=== PATIENT | female | born 1935 | race Caucasian/White ===

== ENCOUNTER 2017-10-21 18:10 | Inpatient (IN) | payer MEDICARE, MEDICAID ==
[~2017-10-21] VITALS: Ht 160 cm; Wt 57.2 kg
--- NOTE | 2017-10-21 18:10 | NUR ---
BIBRA FROM HOME C/O SLURRED SPEECH, R SIDE FACIAL DROOPING, TT=289DH/DL IN THE FIELD, LKW=6HRS AGO. PLACED ON MONITOR. AWAITING MD ORDER
--- NOTE | 2017-10-21 18:17 | NUR ---
CODE STROKE ACTIVATED
--- NOTE | 2017-10-21 18:19 | NUR ---
CALLED TELESTROKE HOTLINE, SPOKE WITH CONRAD EXPECTING A CALL BACK FROM
[2017-10-21] MEDS ORDERED: IOHEXOL-350 100 ML VIAL IV ONE (18:22)
--- NOTE | 2017-10-21 18:23 | NUR ---
DR RODRÍGUEZ CALLED BACK ON THE PHONE WITH DR JOHN.
[2017-10-21] MEDS ORDERED: IV NS 0.9% 500 ML BAG IV ONE (18:30)
--- NOTE | 2017-10-21 18:30 | NUR ---
SEE CODE STROKE LOG
--- NOTE | 2017-10-21 18:40 | NUR ---
PT BACK FROM [place]
[2017-10-21 18:54] LABS: BASOPHILS % (AUTO) 0.5 % (0.0-2.0); EOSINOPHILS % (AUTO) 1.3 % (0.0-6.0); HEMATOCRIT 40 % (33-45); HEMOGLOBIN 13.6 g/dL (11.5-14.8); LYMPHOCYTES % (AUTO) 29.2 % (20.0-44.0); MEAN CORPUSCULAR HGB CONC 34 g/dl (31.0-36.0); MEAN CORPUSCULAR VOLUME 91 fL (82-100); MONOCYTES # (AUTO) 0.9 /CMM (0.1-1.30); NEUTROPHILS # (AUTO) 6.2 /CMM (1.8-8.9); PLATELET COUNT (AUTO) 254 /CMM (150-450); RDW COEFFICIENT OF VARIATION 12.8 (11.5-15.0); RED BLOOD CELL COUNT(AUTO) 4.41 MIL/uL (4.0-5.2); WHITE BLOOD COUNT (AUTO) 10.4 K/uL (4.3-11.0)
[2017-10-21 19:05] LABS: CALCIUM, SERUM 8.6 mg/dL (8.5-10.1); CARBON DIOXIDE 30 mmol/L (21-32); CHLORIDE 102 mmol/L (98-107); CREATININE 0.9 mg/dL (0.6-1.3); GLUCOSE 105 mg/dL (74-106); POTASSIUM 3.9 mmol/L (3.5-5.1); SODIUM SERUM 136 mmol/L (136-145); UREA NITROGEN, BLOOD 22 mg/dL (7-18)
[2017-10-21] MEDS ORDERED: ASPIRIN 300 MG/SUPP.RECT RC ONE ×2 (19:08→19:30)
[2017-10-21 19:11] LABS: ALANINE AMINOTRANSFERASE 17 U/L (12-78); ALBUMIN 3.4 g/dL (3.4-5.0); ALKALINE PHOSPHATASE 68 U/L (46-116); ASPARTATE AMINOTRANSFERASE 14 U/L (15-37); BILIRUBIN,DIRECT 0.1 mg/dL (0.0-0.2); BILIRUBIN,TOTAL 0.7 mg/dL (0.2-1.0); CHOLESTEROL 189 mg/dL (<200); HDL CHOLESTEROL 43 mg/dL (40-60); LDL 115 mg/dL (0-99); TOTAL PROTEIN, SERUM 7.2 g/dL (6.4-8.2); TRIGLYCERIDES 286 mg/dL (30-150)
[2017-10-21 19:12] LABS: INR 0.99 (0.85-1.15)
[2017-10-21 19:13] LABS: TROPONIN I 0.251 ng/mL (0.00-0.056)
--- NOTE | 2017-10-21 19:15 | NUR ---
GAVE REPORT TO JEMMA FOR EDWINA
--- NOTE | 2017-10-21 19:48 | NUR ---
SPOKE WITH CCRT REGARDING PT AND TRANSFER. AWAITING CALL BACK
--- NOTE | 2017-10-21 19:56 | NUR ---
CALLED TRES FROM [facility], HE SAID HE IS WAITING FOR A PHONE CALL FROM ONE OF HIS DR'S TO START TRANSPORT.
--- NOTE | 2017-10-21 20:03 | NUR ---
TRES FROM [facility] CALLED AND STATED BECAUSE THE PATIENT DOES NOT HAVE A LARGE VESSEL OCCLUSION AND THE PATIENT DID NOT RECIEVE TPA, THEY WILL NOT BE TRANSFERING THE PATIENT.
--- NOTE | 2017-10-21 20:07 | NUR ---
CALLED TELESTROKE HOTLINE DR RODRÍGUEZ WAS PAGED.
--- NOTE | 2017-10-21 20:14 | NUR ---
CALLED ON THE PHONE WITH DORA.
--- NOTE | 2017-10-21 20:42 | NUR ---
PT DID NOT COME WITH MEDICATION LIST. NO NUMBER FOR FACILITY OR CAREGIVER
[2017-10-21] MEDS ORDERED: ACETAMINOPHEN 325 MG TABLET PO PRN (21:00)
--- NOTE | 2017-10-21 21:02 | NUR ---
REPORT GIVEN TO EDWARD/RN TO ROOM 324-2
[2017-10-21] MEDS ORDERED: CARV12.52 PO (21:06)
[2017-10-21] MEDS ORDERED: AMLO10TA6 PO (21:06)
[2017-10-21] MEDS ORDERED: METO-357 PO (21:06)
[2017-10-21] MEDS ORDERED: TRAM50TA2 PO (21:06)
[2017-10-21] MEDS ORDERED: TEMA15CA PO (21:06)
--- NOTE | 2017-10-21 21:06 | NUR ---
SHAHID DUSTIN [phone]
[2017-10-21] MEDS ORDERED: ATOR10TA PO (21:38)
[2017-10-21] MEDS ORDERED: POTA10CA43 PO (21:38)
[2017-10-21] MEDS ORDERED: LEVO25TA7 PO (21:38)
[2017-10-21] MEDS ORDERED: DIPH1TAB PO (21:38)
[2017-10-21] MEDS ORDERED: MEMA10TA PO (21:38)
[2017-10-21] MEDS ORDERED: BISA-79 PO (21:38)
[2017-10-21] MEDS ORDERED: DIVA500T2 PO (21:38)
[2017-10-21] MEDS ORDERED: ESCI20TA PO (21:38)
[2017-10-21] MEDS ORDERED: CARV25TA2 PO (21:38)
[2017-10-21] MEDS: SIMVASTATIN 40 MG TABLET PO SCH (22:09)
[2017-10-21] MEDS: ENOXAPARIN SODIUM 40 MG/0.4 ML DISP.SYRIN SQ SCH (22:11)
[2017-10-21] MEDS: BLOOD SUGAR DIAGNOSTIC 1 EACH STRIP IN SCH (22:22)
[2017-10-21 23:31] LABS: THYROID STIMULATING HORMONE 4.539 uIU/mL (0.358-3.74)
[2017-10-22] VITALS (8 sets, daily range): BP systolic 95–140; BP diastolic 66–98
[2017-10-22] MEDS ORDERED: BLOOD SUGAR DIAGNOSTIC 1 EACH STRIP IN SCH
--- NOTE | 2017-10-22 04:18 | NUR ---
CLOSING NOTES: RECIEVED 21:45 LAST NIGHT. aLERT AND KNEW SHE WAS IN A HOSPITAL, DIDN'T KNOPW WHY. kNEW HER DATE.. SHE FOLLOWS SIMPLE DIRECTIONS. NOTED THE NIGHT PROGRESSED CFUSION SET IN, SHE WAS TRYING TO GET OOB, STATED GOING HOME. WAS ABLE TO CONVINCE HER TO GET IN BED. NEAR NURSING STATION FOR SAFETY, AND BED ALARM IN USE. SHE PULLED OUT HER SALINE LOCK LT AC. RIGHT SIDED FACIAL DROOP AND RIGHT ARE IS RIDGET BUT MOVEMENT PRESENT.
[2017-10-22 06:26] LABS: BASOPHILS # (AUTO) 0.1 /CMM (0.0-0.2); BASOPHILS % (AUTO) 0.6 % (0.0-2.0); EOSINOPHILS % (AUTO) 1.7 % (0.0-6.0); HEMATOCRIT 38 % (33-45); HEMOGLOBIN 12.8 g/dL (11.5-14.8); LYMPHOCYTES # (AUTO) 3.2 /CMM (0.8-4.8); LYMPHOCYTES % (AUTO) 38.6 % (20.0-44.0); MEAN CORPUSCULAR HGB CONC 34 g/dl (31.0-36.0); MEAN CORPUSCULAR VOLUME 91 fL (82-100); MONOCYTES # (AUTO) 0.7 /CMM (0.1-1.30); MONOCYTES % (AUTO) 8.2 % (2.0-12.0); NEUTROPHILS # (AUTO) 4.2 /CMM (1.8-8.9); NEUTROPHILS % (AUTO) 50.9 % (43.0-81.0); PLATELET COUNT (AUTO) 236 /CMM (150-450); RDW COEFFICIENT OF VARIATION 12.8 (11.5-15.0); RED BLOOD CELL COUNT(AUTO) 4.14 MIL/uL (4.0-5.2); WHITE BLOOD COUNT (AUTO) 8.3 K/uL (4.3-11.0)
--- NOTE | 2017-10-22 06:31 | NUR ---
MD DOSHI MADE AWARE HR 92 -132 UNCONTROLLED AFIB, NO NEW ORDERS
[2017-10-22 06:37] LABS: INR 0.99 (0.87-1.13)
[2017-10-22 06:50] LABS: CHOLESTEROL 183 mg/dL (<200); HDL CHOLESTEROL 43 mg/dL (40-60); LDL 122 mg/dL (0-99); TRIGLYCERIDES 124 mg/dL (30-150)
[2017-10-22 06:52] LABS: CARBON DIOXIDE 27 mmol/L (21-32); CHLORIDE 105 mmol/L (98-107); CREATININE 0.8 mg/dL (0.6-1.3); GLUCOSE 98 mg/dL (74-106); POTASSIUM 3.6 mmol/L (3.5-5.1); SODIUM SERUM 142 mmol/L (136-145); UREA NITROGEN, BLOOD 18 mg/dL (7-18)
[2017-10-22] MEDS: BLOOD SUGAR DIAGNOSTIC 1 EACH STRIP IN SCH ×4 (07:30→21:38)
--- NOTE | 2017-10-22 07:33 | NUR ---
RHEOLOGIST OPENING NOTE RECEIVED BEDSIDE REPORT ON THE PATIENT. PATIENT IS A/O X, CONFUSED, PRESENTS WITH EXPRESSIVE APHASIA. PATIENT IS IN BED, BED IS LOCKED IN LOWEST POSITION, SIDE RAILS UP X3, BED ALARM IS ON. PATIENT IS AMBULATORY WITH ASSIST. EXTERNAL MONITOR READING UNCONTROLLED AFIB 117. TEST ENG IS AWARE. HOSPITALIST IS AWARE. .CALL LIGHT WITHIN REACH. EDUCATED TO CALL FOR ASSISTANCE USING THE CALL LIGHT NO S/S OF PAIN/DISCOMFORT AT THIS TIME. ALL NEEDS ARE MET. CHEST RISING EQUALLY/BILATERALLY. SPO2 95% ON ROOM AIR. WILL CONTINUE TO ASSESS/MONITOR THROUGHOUT THE SHIFT.
--- NOTE | 2017-10-22 08:40 | NUR ---
BLOOD GLUCOSE DIAGNOSTIC WAS DONE BY SEWAGE DISPOSAL WORKER RN AT 0540, BUT NOT SCANNED. DOCUMENTED NON-ADMINISTERED TO RID OF RED REMINDER I THE EMAR.
[2017-10-22] MEDS ORDERED: IV NS 0.9% 1,000 ML IV SCH (09:30)
[2017-10-22] MEDS: ASPIRIN EC 325 MG TABLET.DR PO SCH (10:25)
[2017-10-22] MEDS: DOCUSATE SODIUM 100 MG CAPSULE PO SCH (10:25)
[2017-10-22] MEDS ORDERED: TRAMADOL HCL 50 MG TABLET PO PRN (10:30)
[2017-10-22] MEDS ORDERED: BISACODYL (5 MG) 5 MG TABLET.DR PO ONE (10:30)
--- NOTE | 2017-10-22 10:36 | NUR ---
Received verbal order from Dr Bañuelos to reduce IV rate to 75 Ml/hr. Read back and verified. Will follow order as received.
[2017-10-22] MEDS ORDERED: POTASSIUM CHLORIDE 10 MEQ TABLET.SA PO SCH (11:30)
--- NOTE | 2017-10-22 12:10 | NUR ---
came to check BG. Patient's family at the bedside stated patient gets upset from being pocked. Asked me to come back later.
[2017-10-22] MEDS: DIGOXIN INJ 0.5 MG/2 ML AMPUL IV SCH ×3 (12:50→23:57)
--- NOTE | 2017-10-22 12:57 | NUR ---
Bg 145mg/dL postprandial. Caregiver/family refused coverage.
[2017-10-22] MEDS ORDERED: DIVALPROEX SODIUM 500 MG TABLET.DR PO SCH (13:00)
[2017-10-22] MEDS: VALPROIC ACID 250 MG/5 ML UDC PO SCH ×2 (13:00→17:31)
--- NOTE | 2017-10-22 13:28 | NUR ---
Social service consult requested by DR. Sandoval for CVA. Pt. is a 82 year old female who was admitted to [facility] for possible stroke. YONI and case technician Marcela Yuen met with pt. bedside. Pt. is alert and oriented x 1 and appears confused. Pt's family/caregiver Alpa Contrerasedwige was bedside. Per Alpa, pt. is able to ambulate. Pt. to be assessed by Physical therapy for ambulation. Pt. resides at [address] [place] [address]. [place] [id number]. According to Alpa, pt. does not have a history of stroke. Pt. has Home Health services through [facility] . Pt. is also receiving 60 hrs per month in [facility]. SW encouraged pt's caregiver Alpa to notify pt's family caseworker at [facility] regarding pt. having an stroke and will most likely need more caregiving hours. No other social service needs are required at this time. SW is available, if needed.
--- NOTE | 2017-10-22 13:43 | NUR ---
REFUSED TO TAKE POTASSIUM BECAUSE PILL IS TO BIG. REFUSED TO TAKE DIVALPROEX BECAUSE THE PILL IS TOO BIG. PHARMACY INFORMED. AWAITING T PHARMACY TO SWITCH TO LIQUID AND POCKET.
[2017-10-22] MEDS: POTASSIUM CHLORIDE 20 MEQ POWDER PACKET PO SCH (14:45)
--- NOTE | 2017-10-22 15:52 | NUR ---
DR LAGOS NOTIFIED OF PATIENT'S FALL INCIDENT. Addendum: 10/22/17 at 1714 by BRIJESH DEL CID RN TIME IS 7069
--- NOTE | 2017-10-22 16:50 | NUR ---
FALL INCIDENT NOTE PATIENT'S ROOMMATES CAME TO RN AND SAID THAT THE PATIENT IS SITTING ON THE FLOOR. WHEN RN WENT TO THE ROOM THE PATIENT WAS SITTING AT THE FLOOR NEXT TO THE BED. RN ASKED THE PATIENT IF SHE HAS FALLEN. PATIENT WAS UNABLE TO ANSWER D/T EXPRESSIVE APHASIA. RN ASKED THE PATIENT IF THE PATIENT IS EXPERIENCING PAIN. PATIENT SHOOK HER HEAD INDICATING NEGATIVE ANSWER. RN HAS LEFT THE BEDSIDE ALARM ON. PATIENT HAS RECENTLY AMBULATED WITH PT/OT. BED ALARM DID NOT GO OFF WHEN PATIENT WENT OUT OF THE BED. BED ALARM WAS OFF. PATIENT WAS EXAMINED. NO BRUISES, REDNESS, SCRATCHES PRESENT. PATIENT ASSISTED BACK TO THE BED. SIDE RAILS UP X3, BED ALARM IS ON, CALL LIGHT WITHIN REACH. FAMILY MEMBER AT THE BEDSIDE. CHARGE NURSE NOTIFIED.
--- NOTE | 2017-10-22 17:41 | NUR ---
BG 137mg/dl/ family at the bedside. Patient had a juice nad is in the process of having her dinner. Family refused coverage.
--- NOTE | 2017-10-22 19:00 | NUR ---
RECREATION ATTENDANT NOTES RECEIVE PT IN BED A/O X 2 CONFUSED, NO S/S OF DISTRESS, SAFETY MEASURES IN PLACE, CALL LIGHT WITHIN REACH, WILL CONTINUE TO MONITOR
--- NOTE | 2017-10-22 19:17 | NUR ---
SASH FINISHER CLOSING NOTE PATIENT IS A/O X1, CONFUSED, PRESENTS WITH EXPRESSIVE APHASIA. PATIENT IS IN BED, BED IS LOCKED IN LOWEST POSITION, SIDE RAILS UP X3, BED ALARM IS ON. PATIENT IS AMBULATORY WITH ASSIST. EXTERNAL MONITOR READING UNCONTROLLED AFIB 119. PROFILE MILL OPERATOR TAPE CONTROL IS AWARE. HOSPITALIST IS AWARE. CALL LIGHT WITHIN REACH. EDUCATED TO CALL FOR ASSISTANCE USING THE CALL LIGHT NO S/S OF PAIN/DISCOMFORT AT THIS TIME. ALL NEEDS ARE MET. CHEST RISING EQUALLY/BILATERALLY. SPO2 95% ON ROOM AIR. WILL ENDORSE TO THE DIETETIC INTERN NURSE FOR EDWINA.
[2017-10-22] MEDS: SIMVASTATIN 40 MG TABLET PO SCH (21:26)
[2017-10-22] MEDS: ENOXAPARIN SODIUM 40 MG/0.4 ML DISP.SYRIN SQ SCH (21:37)
[2017-10-23] VITALS: BP 134/82
[2017-10-23 04:00] VITALS: BP 146/98
[2017-10-23] MEDS: BLOOD SUGAR DIAGNOSTIC 1 EACH STRIP IN SCH ×4 (06:13→21:06)
--- NOTE | 2017-10-23 06:37 | NUR ---
MS RN NOTES ASLEEP AND EASILY AWAKEN, HOB ELEVATED, STABLE NO S/S OF ACUTE DISTRESS OR SOB NOTED. TOLERATING ROOM AIR 99% RESPIRATIONS EVEN AND UNLABORED. NEEDS ATTENDED AND ANTICIPATED; AFEBRILE, KEPT CLEAN AND DRY AND COMFORTABLE. NURSING CARE RENDERED, ASSISTED REPOSITION EVERY 2 HOURS, OFFLOADED HEELS AND ELBOWS AT ALL TIMES. SAFETY MEASURES IN PLACE. BED LOW LOCKED SIDE RAILS UP, CALL LIGHT AND BEDSIDE TABLE WITHIN REACH. ENDORSE TO THE NEXT SHIFT POC.
--- NOTE | 2017-10-23 06:38 | NUR ---
ATTACH TO TELE WITH READING OF CONTROLLED AFIB 98'S Addendum: 10/23/17 at 0639 by KENNETH COMBS RN [facility]
--- NOTE | 2017-10-23 07:25 | NUR ---
PRESALES CONSULTANT OPENING NOTE RECEIVED BEDSIDE REPORT ON THE PATIENT. PATIENT IS A/O X2, CONFUSED, PRESENTS WITH EXPRESSIVE APHASIA. PATIENT IS ASLEEP, EASILY AWAKEN IN BED, BED IS LOCKED IN LOWEST POSITION, SIDE RAILS UP X3, BED ALARM IS ON. PATIENT IS AMBULATORY WITH ASSIST. EXTERNAL MONITOR READING AFIB 88BPM. MARKETING COMMUNICATIONS MANAGER IS AWARE. HOSPITALIST IS AWARE. CALL LIGHT WITHIN REACH. EDUCATED TO CALL FOR ASSISTANCE USING THE CALL LIGHT NO S/S OF PAIN/DISCOMFORT AT THIS TIME. ALL NEEDS ARE MET. CHEST RISING EQUALLY/BILATERALLY. SPO2 96% ON ROOM AIR. WILL CONTINUE TO ASSESS/MONITOR THROUGHOUT THE SHIFT.
[2017-10-23 08:00] VITALS: BP 134/103
[2017-10-23] MEDS: VALPROIC ACID 250 MG/5 ML UDC PO SCH ×3 (09:08→17:22)
[2017-10-23] MEDS: ESCITALOPRAM OXALATE (10 MG) 10 MG TABLET PO SCH (09:09)
[2017-10-23] MEDS: POTASSIUM CHLORIDE 20 MEQ POWDER PACKET PO SCH (09:09)
[2017-10-23] MEDS: DOCUSATE SODIUM 100 MG CAPSULE PO SCH (09:09)
[2017-10-23] MEDS: ASPIRIN EC 325 MG TABLET.DR PO SCH (09:09)
[2017-10-23] MEDS: MEMANTINE HCL 5 MG TABLET PO SCH (09:09)
[2017-10-23] MEDS: LEVOTHYROXINE SODIUM 25 MCG TABLET PO SCH (09:09)
[2017-10-23] MEDS: DIGOXIN 0.25 MG TABLET PO SCH (12:22)
[2017-10-23 16:00] VITALS: BP 131/73
[2017-10-23 16:03] VITALS: BP 123/89
--- NOTE | 2017-10-23 18:27 | NUR ---
MS RN CLOSING NOTE PATIENT PRESENTS WITH EXPRESSIVE APHASIA. PATIENT IS ALERT AND AWAKE IN IN BED, BED IS LOCKED IN LOWEST POSITION, SIDE RAILS UP X3, BED ALARM IS ON. PATIENT IS AMBULATORY WITH ASSIST. CALL LIGHT WITHIN REACH. EDUCATED TO CALL FOR ASSISTANCE USING THE CALL LIGHT NO S/S OF PAIN/DISCOMFORT AT THIS TIME. ALL NEEDS ARE MET. CHEST RISING EQUALLY/BILATERALLY. SPO2 97% ON ROOM AIR. WILL ENDORSE TO THE BUSINESS CENTER ATTENDANT NURSE FOR EDWINA.
--- NOTE | 2017-10-23 19:15 | NUR ---
RN NOTES RECEIVED PATIENT IN BED, AWAKE, NOTED WITH EXPRESSIVE APHASIA, ABLE TO RESPOND WITH QUESTIONS ANSWERABLE BY YES OR NO. NO SOB NOTED, BREATHING EVEN AND UNLABORED, RE-ORIENTED PATIENT ON USING THE CALL LIGHT. PLACED CALL LIGHT WITHIN EASY REACH. NOTED WITH NO FACIAL GRIMACING, WITH NO SIGNS OF DISTRESS. PLACED BED IN LOW POSITION AND LOCKED IN PLACE. WILL CONTINUE TO MONITOR PT.
[2017-10-23 20:00] VITALS: BP 120/85
[2017-10-23] MEDS: SIMVASTATIN 40 MG TABLET PO SCH (21:00)
[2017-10-23] MEDS: ENOXAPARIN SODIUM 40 MG/0.4 ML DISP.SYRIN SQ SCH (21:00)
[2017-10-24] VITALS: BP 147/85
--- NOTE | 2017-10-24 06:32 | NUR ---
RN CLOSING NOTES PATIENT IN BED, ASLEEP BUT EASILY AROUSABLE, NOTED WITH NO SOB, BREATHING EVEN AND UNLABORED, IN STABLE CONDITION THROUGHOUT THE SHIFT, WITH NO CHANGES IN MENTATION NOTED. ALL PATIENT'S NEEDS ATTENDED TO, KEPT PT SAFE AND DRY, CLEAN AND COMFORTABLE. BED ALARM ON, IN LOW POSITION AND LOCKED IN PLACE. PLACED CALL LIGHT WITHIN EASY REACH. WILL ENDORSE TO AM SHIFT NURSE FOR CONTINUITY OF CARE.
[2017-10-24] MEDS: BLOOD SUGAR DIAGNOSTIC 1 EACH STRIP IN SCH ×2 (06:37→12:22)
[2017-10-24 06:59] LABS: BASOPHILS # (AUTO) 0.1 /CMM (0.0-0.2); BASOPHILS % (AUTO) 0.6 % (0.0-2.0); EOSINOPHILS % (AUTO) 2.3 % (0.0-6.0); HEMATOCRIT 42 % (33-45); HEMOGLOBIN 14.2 g/dL (11.5-14.8); LYMPHOCYTES # (AUTO) 2.8 /CMM (0.8-4.8); LYMPHOCYTES % (AUTO) 35.1 % (20.0-44.0); MEAN CORPUSCULAR HGB CONC 34 g/dl (31.0-36.0); MEAN CORPUSCULAR VOLUME 92 fL (82-100); MONOCYTES # (AUTO) 0.6 /CMM (0.1-1.30); NEUTROPHILS # (AUTO) 4.3 /CMM (1.8-8.9); PLATELET COUNT (AUTO) 242 /CMM (150-450); RDW COEFFICIENT OF VARIATION 12.4 (11.5-15.0); RED BLOOD CELL COUNT(AUTO) 4.58 MIL/uL (4.0-5.2); WHITE BLOOD COUNT (AUTO) 7.9 K/uL (4.3-11.0)
[2017-10-24 07:13] LABS: TROPONIN I 0.351 ng/mL (0.00-0.056)
[2017-10-24 07:15] LABS: ALANINE AMINOTRANSFERASE 17 U/L (12-78); ALBUMIN 3.3 g/dL (3.4-5.0); ALKALINE PHOSPHATASE 71 U/L (46-116); ASPARTATE AMINOTRANSFERASE 13 U/L (15-37); BILIRUBIN,TOTAL 1.4 mg/dL (0.2-1.0); CARBON DIOXIDE 27 mmol/L (21-32); CHLORIDE 104 mmol/L (98-107); CREATININE 0.8 mg/dL (0.6-1.3); GLUCOSE 92 mg/dL (74-106); MAGNESIUM 2.7 mg/dL (1.8-2.4); PHOSPHORUS 3.3 mg/dL (2.5-4.9); POTASSIUM 3.9 mmol/L (3.5-5.1); SODIUM SERUM 140 mmol/L (136-145); TOTAL PROTEIN, SERUM 7.1 g/dL (6.4-8.2); UREA NITROGEN, BLOOD 20 mg/dL (7-18)
--- NOTE | 2017-10-24 07:15 | NUR ---
MS RN NOTES RECEIVED PATIENT IN BED EYES CLOSED, AROUSABLE. NO ACUTE DISTRESS NOTED. BREATHING UNLABORED.SAFETY MEASURES IN PLACE. BED IN LOW POSITION. HOB ELEVATED. CALL LIGHT WITHIN REACH. WILL CONTINUE TO MONITOR ACCORDINGLY.
[2017-10-24 08:44] VITALS: BP 150/97
[2017-10-24] MEDS: ESCITALOPRAM OXALATE (10 MG) 10 MG TABLET PO SCH (09:17)
[2017-10-24] MEDS: ASPIRIN EC 325 MG TABLET.DR PO SCH (09:17)
[2017-10-24] MEDS: MEMANTINE HCL 5 MG TABLET PO SCH (09:17)
[2017-10-24] MEDS: LEVOTHYROXINE SODIUM 25 MCG TABLET PO SCH (09:17)
[2017-10-24] MEDS: DOCUSATE SODIUM 100 MG CAPSULE PO SCH (09:17)
[2017-10-24] MEDS: VALPROIC ACID 250 MG/5 ML UDC PO SCH ×3 (09:18→16:34)
[2017-10-24] MEDS: DIGOXIN 0.25 MG TABLET PO SCH (12:22)
[2017-10-24] MEDS ORDERED: Digoxin PO (14:26)
[2017-10-24] MEDS ORDERED: ASPI-869 PO (14:26)
[2017-10-24] MEDS ORDERED: SIMV40TA5 PO (14:26)
[2017-10-24 15:50] VITALS: BP 155/91
--- NOTE | 2017-10-24 16:45 | NUR ---
MS WET END SUPERVISOR NOTES PATIENT DISCHARGED HOME WITH HOME HEALTH IN STABLE CONDITION. NO ACUTE DISTRESS NOTED. BREATHING UNLABORED. DISCHARGE INSTRUCTIONS GIVEN TO THE ABHIJIT LARSON INCLUDING FOLLOW UP APPOINTMENT, VERBALIZED UNDERSTANDING. ALL BELONGINGS ACCOUNTED FOR. SKIN IS INTACT. IV ACCESS REMOVED, NO BLEEDING OR SWELLING NOTED. WHEELED TO THE LOBBY, ASSISTED TO A PRIVATE CAR .
== END 2017-10-24 16:44 | disposition home health service (06) | DRG 64 ==
LOC: ER 18:13 → TELE 21:21 → MED 10-23 09:49
DX: I63.412 Cerebral infarction due to embolism of left middle cerebral artery (principal); I21.A1 Myocardial infarction type 2; I48.91 Unspecified atrial fibrillation; F03.90 Unspecified dementia, unspecified severity, without behavioral disturbance, psychotic disturbance, mood disturbance, and anxiety; I10 Essential (primary) hypertension; R47.01 Aphasia; Z98.82 Breast implant status
CPT/HCPCS: 36415; 70450-TC; 70496-TC; 70498-TC; 71045-TC; 80048-TC; 80053-TC; 80061-TC; 80076-TC; 82962-TC; 83735-TC; 83880; 84100-TC; 84443-TC; 84484-TC; 85025-TC; 85652-TC; 85730-TC; 86850-TC; 87081-TC; 92521; 92611-TC; 93307-TC; 93880-TC; 97110-TC; 97112-TC; A4606; J1160; J1650; J7040; Q9967; Z7610

== ENCOUNTER 2017-10-26 13:23 | Outpatient (CLI) | payer MEDICARE, MEDICAID ==
[2017-10-26 13:15] VITALS: BP 121/62
[~2017-10-26 13:23] MED LIST: AMLO10TA6 PO; ASPI-869 PO; BISA-79 PO; CARV25TA2 PO; DIPH1TAB PO; DIVA500T2 PO; Digoxin PO; ESCI20TA PO; LEVO25TA7 PO; MEMA10TA PO; METO-357 PO; POTA10CA43 PO; SIMV40TA5 PO; TEMA15CA PO; TRAM50TA2 PO
== END 2017-10-26 23:59 | disposition home or self-care (01) ==
LOC: MSC 13:23
PROVIDERS: ATTEND Internal Medicine
DX: I69.320 Aphasia following cerebral infarction (principal); I48.91 Unspecified atrial fibrillation; I10 Essential (primary) hypertension; F03.90 Unspecified dementia, unspecified severity, without behavioral disturbance, psychotic disturbance, mood disturbance, and anxiety

== ENCOUNTER 2017-11-16 13:02 | Outpatient (CLI) | payer MEDICARE, MEDICAID ==
[2017-11-16 13:18] VITALS: BP 91/59
== END 2017-11-16 23:59 | disposition home or self-care (01) ==
LOC: MSC 13:02
PROVIDERS: ATTEND Internal Medicine
DX: I69.320 Aphasia following cerebral infarction (principal); Z79.82 Long term (current) use of aspirin; I48.91 Unspecified atrial fibrillation; Z79.01 Long term (current) use of anticoagulants; I10 Essential (primary) hypertension; F03.90 Unspecified dementia, unspecified severity, without behavioral disturbance, psychotic disturbance, mood disturbance, and anxiety

== ENCOUNTER 2017-12-09 15:16 | Inpatient (IN) | payer MEDICARE, MEDICAID ==
[2017-12-09] VITALS: BP 113/70
[~2017-12-09] VITALS: Ht 152.4 cm; Wt 56.2 kg
[~2017-12-09 15:16] MED LIST changes: +AMLO10TA2 PO; -AMLO10TA6 PO
[2017-12-09] MEDS ORDERED: DIGO125T PO (15:30)
[2017-12-09] MEDS ORDERED: RIVA10TA PO (15:30)
--- NOTE | 2017-12-09 15:30 | NUR ---
PT BIB RA S/P SZ WITNESSED BY FAMILY. NO LOSS OF CONTINENCE. NO VISIBLE TRAUMA, OR ORAL TRAUMA. RESP EVEN UNLABORED. SKIN WARM DRY. PT IS ALERT AND ORIENTED BUT ACTING ODDLY, REQUIRING REPEATED INSTRUCTIONS TO FOLLOW COMMANDS. IN ER BED 09 ON MONITOR.
[2017-12-09] MEDS ORDERED: POTA10TA15 PO (15:50)
[2017-12-09] MEDS ORDERED: ATOR10TA PO (15:50)
[2017-12-09] MEDS ORDERED: OLAN10TA3 PO (15:50)
[2017-12-09 15:59] LABS: BASOPHILS # (AUTO) 0.1 /CMM (0.0-0.2); BASOPHILS % (AUTO) 0.7 % (0.0-2.0); EOSINOPHILS % (AUTO) 1.3 % (0.0-6.0); HEMATOCRIT 44 % (33-45); HEMOGLOBIN 14.9 g/dL (11.5-14.8); LYMPHOCYTES # (AUTO) 2.4 /CMM (0.8-4.8); LYMPHOCYTES % (AUTO) 31.1 % (20.0-44.0); MEAN CORPUSCULAR HEMOGLOBIN 32 PG (26.0-33.0); MEAN CORPUSCULAR HGB CONC 34 g/dl (31.0-36.0); MEAN CORPUSCULAR VOLUME 93 fL (82-100); MONOCYTES # (AUTO) 0.6 /CMM (0.1-1.30); MONOCYTES % (AUTO) 7.3 % (2.0-12.0); NEUTROPHILS # (AUTO) 4.6 /CMM (1.8-8.9); NEUTROPHILS % (AUTO) 59.6 % (43.0-81.0); PLATELET COUNT (AUTO) 242 /CMM (150-450); RED BLOOD CELL COUNT(AUTO) 4.72 MIL/uL (4.0-5.2); WHITE BLOOD COUNT (AUTO) 7.8 K/uL (4.3-11.0)
[2017-12-09 16:11] LABS: CALCIUM, SERUM 9.8 mg/dL (8.5-10.1); CARBON DIOXIDE 31 mmol/L (21-32); CHLORIDE 104 mmol/L (98-107); CREATININE 0.9 mg/dL (0.6-1.3); GLUCOSE 115 mg/dL (74-106); POTASSIUM 4.3 mmol/L (3.5-5.1); SODIUM SERUM 141 mmol/L (136-145); UREA NITROGEN, BLOOD 25 mg/dL (7-18)
[2017-12-09 16:15] LABS: INR 1.22 (0.85-1.15)
[2017-12-09 16:20] LABS: ALANINE AMINOTRANSFERASE 37 U/L (12-78); ALBUMIN 3.5 g/dL (3.4-5.0); ALCOHOL, BLOOD < 3 mg/dL (0-0); ALKALINE PHOSPHATASE 68 U/L (46-116); ASPARTATE AMINOTRANSFERASE 21 U/L (15-37); BILIRUBIN,DIRECT 0.1 mg/dL (0.0-0.2); BILIRUBIN,TOTAL 0.6 mg/dL (0.2-1.0); TOTAL PROTEIN, SERUM 7.3 g/dL (6.4-8.2)
[2017-12-09] MEDS ORDERED: ASPIRIN 81 MG TAB.CHEW ONE (16:28)
[2017-12-09] MEDS ORDERED: DIVALPROEX SODIUM 250 MG TABLET.DR PO ONE ×2 (16:28→16:30)
--- NOTE | 2017-12-09 16:32 | NUR ---
ASPIRIN 162MG PO ADMINISTERED PER VERBAL ORDER OF DR ERWIN FOR ELEVATED TROPONIN
--- NOTE | 2017-12-09 16:39 | NUR ---
Tele [phone] LATA Liriano
--- NOTE | 2017-12-09 16:44 | NUR ---
Report given to LATA Liriano for EDWINA Tele [phone]
--- NOTE | 2017-12-09 16:45 | NUR ---
Received telephone report from LATA Pendleton for ER. Awaiting for the patient's arrival.
--- NOTE | 2017-12-09 17:15 | NUR ---
PT TRANSPORTED TO [facility] IN STABLE CONDITION VIA ACLS PROTOCOL
--- NOTE | 2017-12-09 17:29 | NUR ---
patient arrived to the unit Admitting notified.
[2017-12-09 17:30] VITALS: BP 115/72
[2017-12-09] MEDS ORDERED: MAG HYDROX/AL HYDROX/SIMETH 30 ML UDC PO PRN (17:30)
[2017-12-09] MEDS ORDERED: MAGNESIUM HYDROXIDE 30 ML UDC PO PRN (17:30)
[2017-12-09] MEDS ORDERED: ONDANSETRON HCL/PF 4 MG/2 ML VIAL IVP PRN (17:30)
[2017-12-09] MEDS ORDERED: ACETAMINOPHEN 325 MG TABLET PO PRN (17:30)
[2017-12-09] MEDS ORDERED: ENOXAPARIN SODIUM 40 MG/0.4 ML DISP.SYRIN SQ SCH (17:30)
[2017-12-09] MEDS ORDERED: HYDROCODONE/APAP 5/325MG 1 EACH TABLET PO PRN (17:30)
[2017-12-09] MEDS ORDERED: ZOLPIDEM TARTRATE 5 MG TABLET PO PRN (17:30)
[2017-12-09] MEDS ORDERED: Z GUARD REMEDY 2 OZ OINT TP PRN (17:30)
--- NOTE | 2017-12-09 17:30 | NUR ---
PATIENT IS CONFUSED, AWAKE AND RESPONSIVE, PRESENTS WITH GARBLED SPEECH. PATIENT IS BED, BED IS LOCKED IN LOWEST POSITION, SIDE RAILS UP X3, BED ALARM IS ON. CALL LIGHT WITHIN REACH. EDUCATED TO USE THE CALL LIGHT TO CALL FOR ASSISTANCE. SKIN ASSESSMENT REVEALED RIGHT GLUTEAL PUSS FILLED ABSCESS. DENIES PAIN/DISCOMFORT AT THIS TIME. SPO2 96% ON RA. VS WNL. FAMILY AT THE BEDSIDE. CARE PLAN DISCUSSED. EXTERNAL TOOLER READING AFIB UNCONTROLLED WITH HR 122BMP. PAMELLA MORENO NOTIFIED. NO ORDERS RECEIVED. WILL CONTINUE TO ASESS/MONITOR THROUGHOUT THE SHIFT.
[2017-12-09] MEDS ORDERED: DIPHENOXYLATE HCL/ATROP SULF 1 UDTAB TABLET PO PRN (18:00)
[2017-12-09] MEDS ORDERED: OLANZAPINE 10 MG TABLET PO SCH (18:00)
[2017-12-09] MEDS ORDERED: BISACODYL (5 MG) 5 MG TABLET.DR PO PRN (18:00)
--- NOTE | 2017-12-09 19:00 | NUR ---
RN OPENING NOTES PT AWAKE AND RESTING IN BED. DAUGHTER AT BEDSIDE. PT CONFUSED AND SPEECH GABBLED. PT TELE MONITORED UNCONTROLLED AFIB. PT HAS A LEFT AC #20 INTACT AND PATENT. SAFETY PRECAUTIONS IN PLACE, BED IN LOWEST LOCKED POSITION, X3 SIDE RAILS UP CALL LIGHT WITHIN REACH WILL CONTINUE TO MONITOR.
--- NOTE | 2017-12-09 19:42 | NUR ---
MACHINE OPERATOR PICKER CLOSING NOTE GAVE BEDSIDE SBAR REPORT ON THE PATIENT. PATIENT IS BED, BED IS LOCKED IN LOWEST POSITION, SIDE RAILS UP X3, BED ALARM IS ON. CALL LIGHT WITHIN REACH. EDUCATED TO USE THE CALL LIGHT TO CALL FOR ASSISTANCE. SKIN ASSESSMENT REVEALED RIGHT GLUTEAL PUSS FILLED ABSCESS. DENIES PAIN/DISCOMFORT AT THIS TIME. SPO2 96% ON RA. VS WNL. FAMILY AT THE BEDSIDE. CARE PLAN DISCUSSED. EXTERNAL BOILER HOUSE OPERATOR READING AFIB UNCONTROLLED WITH HR 112 BMP. SOME MEDICATIONS DUE AT 1800 WERE UNVERIFIED BY THE PHARMACY. PATTERN FILER NURSE WILL ADMINISTER. ENDORSED. ENDORSED TO THE PATTERN FILER NURSE FOR EDWINA
[2017-12-09 20:00] VITALS: BP 115/76
[2017-12-09] MEDS: LEVETIRACETAM (500MG) 1,000 MG in IV NS 0.9% 100 ML IV SCH (20:00)
[2017-12-09] MEDS: OLANZAPINE 5 MG TABLET PO SCH (20:00)
[2017-12-09] MEDS: ATORVASTATIN 10 MG TABLET PO SCH (21:56)
--- NOTE | 2017-12-09 22:15 | NUR ---
RN NOTES INFORMED DR DE LA GARZA THAT TROPONIN INCREASED FROM 0.552 TO 0.578.
--- NOTE | 2017-12-09 22:20 | NUR ---
RN NOTES CALLED DR DE LA GARZA. PT TELE MONITORED AT UNCONTROLLED AFIB RATE BETWEEN 120-130. HIGHEST RATE 138. MD ORDERED METOPROLOL 26MG PO ONCE AND FOR THE PT TO BE TRANSFERRED TO [facility]. WILL ADMINISTER METOPROL AND TRANSFER PT.
[2017-12-09] MEDS ORDERED: LORAZEPAM INJ 2 MG/ML VIAL IV PRN (22:30)
[2017-12-09] MEDS ORDERED: METOPROLOL SUCCINATE 25 MG TAB.SR.24H PO STA (22:35)
--- NOTE | 2017-12-09 22:45 | NUR ---
RN NOTES PT TRANSFERRED TO ROOM 103 [facility]. PT VITAL SIGN STABLE WITH THE EXCEPTION OF UNCONTROLLED AFIB. ALL PT BELONGINGS TRANSFERRED WITH PT. FAMILY MEMBER NOTIFIED OF TRANSFER.
--- NOTE | 2017-12-09 22:45 | NUR ---
FADY RN NOTES . PTS AND REPORT WAS RECEIVED FROM 3 WEST RN ALEXA ,PTS IS AWAKE ALERT WITH CONFUSION , D/T AFIB WITH RVR , HR OF 117, FADY STATUS , ON TELE MONITOR AFIB 110 ,CARDIZEM 5MG GIVEN IVP ORDERED AND NS 250CC XI GIVEN ORDERED, V/S STABLE AFEBRILE , PADDED SIDE RAILS FOR SEIZURE D/O. ALL NEEDS ATTENDED TOO CALL LIGHT WITHIN REACH , KEPT PTS CLEAN DRY AND COMFORTABLE,NO SOB NO DISTRESS NOTED .WILL CONTINUE TO MONITOR PTS.
[2017-12-09] MEDS ORDERED: IV NS 0.9% 250 ML IV ONE (23:00)
[2017-12-09] MEDS ORDERED: DILTIAZEM HCL 25 MG IV IV ONE (23:00)
[2017-12-09] MEDS ORDERED: METOPROLOL TARTRATE INJ 5 MG/5 ML AMPUL IVP PRN (23:00)
[2017-12-09 23:44] VITALS: BP 128/71
[2017-12-10] VITALS: BP 113/70
--- NOTE | 2017-12-10 01:22 | NUR ---
FADY RN NOTES PTS REMAINS NPO AT THIS TIME.
[2017-12-10 04:00] VITALS: BP 117/75
[2017-12-10 04:28] LABS: BASOPHILS % (AUTO) 0.4 % (0.0-2.0); EOSINOPHILS % (AUTO) 1.4 % (0.0-6.0); HEMATOCRIT 39 % (33-45); HEMOGLOBIN 13.4 g/dL (11.5-14.8); LYMPHOCYTES # (AUTO) 3.7 /CMM (0.8-4.8); LYMPHOCYTES % (AUTO) 44.2 % (20.0-44.0); MEAN CORPUSCULAR HEMOGLOBIN 32 PG (26.0-33.0); MEAN CORPUSCULAR HGB CONC 34 g/dl (31.0-36.0); MEAN CORPUSCULAR VOLUME 94 fL (82-100); MONOCYTES # (AUTO) 0.5 /CMM (0.1-1.30); MONOCYTES % (AUTO) 6.3 % (2.0-12.0); NEUTROPHILS % (AUTO) 47.7 % (43.0-81.0); PLATELET COUNT (AUTO) 195 /CMM (150-450); RDW COEFFICIENT OF VARIATION 12.9 (11.5-15.0); RED BLOOD CELL COUNT(AUTO) 4.17 MIL/uL (4.0-5.2); WHITE BLOOD COUNT (AUTO) 8.4 K/uL (4.3-11.0)
[2017-12-10 04:54] LABS: CALCIUM, SERUM 9.1 mg/dL (8.5-10.1); CARBON DIOXIDE 28 mmol/L (21-32); CHLORIDE 109 mmol/L (98-107); CREATININE 0.8 mg/dL (0.6-1.3); GLUCOSE 114 mg/dL (74-106); POTASSIUM 3.9 mmol/L (3.5-5.1); SODIUM SERUM 144 mmol/L (136-145); UREA NITROGEN, BLOOD 21 mg/dL (7-18)
[2017-12-10 04:57] LABS: PHOSPHORUS 3.1 mg/dL (2.5-4.9)
[2017-12-10 05:00] LABS: DIGOXIN 0.69 ng/mL (0.90-2.00); VALPROIC ACID 35 ug/mL (50-100)
[2017-12-10 05:14] LABS: CHOLESTEROL 192 mg/dL (<200); HDL CHOLESTEROL 34 mg/dL (40-60); LDL 134 mg/dL (0-99); TRIGLYCERIDES 149 mg/dL (30-150)
--- NOTE | 2017-12-10 06:49 | NUR ---
kj rn notes pts in bed awake and responsive no sob no distress noted remains on afib=66 on the monitor npo status , v/s stable afebrile will endorse to rn day shift for continuity of care.
[2017-12-10] MEDS: LEVOTHYROXINE SODIUM 25 MCG TABLET PO SCH (07:30)
--- NOTE | 2017-12-10 07:30 | NUR ---
FADY RN INITIAL NOTES RECEIVED PATIENT SLEEPING IN BED, EASY TO AROUSE, ALERT, CONFUSED, ON NC 3L, SATURATING WELL, ON TELE MONITORING AFIB 88 HR, IN DIAPER, CURRENTLY NPO AWAITING SWALLOW EVAL, L AC 20 G, SL, CLEAN AND PATENT. BED IN LOW AND LOCKED POSITION CALL LIGHT WITHIN REACH, WILL CONTINUE TO MONITOR, OBSERVING SEIZURE PRECAUTIONS PER PROTOCOL.
[2017-12-10 08:00] VITALS: BP 106/50
--- NOTE | 2017-12-10 08:45 | NUR ---
SENIOR ORACLE DATABASE ADMINISTRATOR NOTES GAVE REPORT TO BRIAN FOR CONTINUITY OF CARE.
--- NOTE | 2017-12-10 08:57 | NUR ---
WOUND CARE CONSULT: PT SEEN PER REQUEST OF SYSTEM ADMINISTRATOR. PT PRESENTS WITH LESION TO RT BUTTOCK, PRESENT ON ADMISSION. DEFER TO MD FOR LESION. WILL SEE PRN. PT EXAMINED BY DR OTERO. Addendum: 12/10/17 at 0858 by ARTURO ORANTES WNDNU Amended: Links added.
[2017-12-10] MEDS: DIVALPROEX SODIUM 500 MG TABLET.DR PO SCH ×2 (09:00→13:14)
[2017-12-10] MEDS ORDERED: METOPROLOL SUCCINATE 50 MG TAB.SR.24H PO SCH (09:00)
[2017-12-10] MEDS: AMLODIPINE BESYLATE 5 MG TABLET PO SCH (09:00)
[2017-12-10] MEDS: ASPIRIN 81 MG TAB.CHEW PO SCH (09:00)
[2017-12-10] MEDS: CARVEDILOL 12.5 MG TABLET PO SCH ×2 (09:00→16:32)
[2017-12-10] MEDS: POTASSIUM CHLORIDE 10 MEQ TABLET.SA PO SCH (09:00)
[2017-12-10] MEDS: LEVETIRACETAM (500MG) 1,000 MG in IV NS 0.9% 100 ML IV SCH ×2 (09:03→20:16)
[2017-12-10] MEDS: PANTOPRAZOLE 40 MG VIAL IV SCH (09:03)
--- NOTE | 2017-12-10 10:18 | NUR ---
YONI consult requested by Dr. Yip to discuss POA with the family. YONI contacted pt's contact Alpa Kaur and inquired if pt. has a DPOA. Alpa informed SW that pt. does not have a DPOA. YONI inquired with pt. has any family. Alpa initially stated no and then said she is the family. YONI tried to interrogate more, however, Alpa informed SW she can't understand SW clearly since she speaks Kenyan. YOIN informed her she will have an Kenyan speaking staff contact her. YONI consulted with caser Carolyn who contacted [facility] WINSTON Crenshaw. WINSTON Crenshaw to follow up with Carolyn regarding finding an Kenyan speaking nurse.
[2017-12-10] MEDS: IV D5/ 0.9% NACL 1,000 ML IV PRN (11:39)
[2017-12-10] MEDS: DIGOXIN 0.125 MG TABLET PO SCH (13:16)
[2017-12-10 16:00] VITALS: BP 101/60
[2017-12-10] MEDS: VALPROIC ACID 250 MG/5 ML UDC PO SCH (16:34)
[2017-12-10] MEDS: RIVAROXABAN 10 MG TABLET PO SCH (16:35)
[2017-12-10] MEDS: OLANZAPINE 5 MG TABLET PO SCH (18:34)
[2017-12-10 20:00] VITALS: BP 109/68
--- NOTE | 2017-12-10 20:00 | NUR ---
FADY RN NOTES RECEIVED BEDSIDE REPORT FROM AM NURSE.PATIENT IN BED, ALERT, CONFUSED, ON RA WITH SPO2 96%, SATURATING WELL, HR 60'S, IN DIAPER,L AC 20 G @ D5W 75ML/HR, CLEAN AND PATENT. BED IN LOW AND LOCKED POSITION CALL LIGHT WITHIN REACH, WILL CONTINUE TO MONITOR, OBSERVING SEIZURE PRECAUTIONS PER PROTOCOL.
[2017-12-10] MEDS: ATORVASTATIN 10 MG TABLET PO SCH (22:18)
[2017-12-11] VITALS: BP 120/77
[2017-12-11 04:00] VITALS: BP 124/75
[2017-12-11] MEDS: IV D5/ 0.9% NACL 1,000 ML IV PRN ×2 (04:45→17:13)
--- NOTE | 2017-12-11 07:23 | NUR ---
MS RN NOTES: RECEIVED PT ON BED ASLEEP, WITH NO APPARENT DISTRESS NOTED. BREATHING EVEN AND UNLABORED WITH NORMAL RESPIRATIONS. NO FACIAL GRIMACING OR ANY SIGNS OF PAIN NOTED. IV ON LEFT AC G20 INTACT AND PATENT. KEPT CLEAN, DRY AND COMFORTABLE. SIDE RAILS UP X2. BED ALARM ON. BED LOCKED AND IN LOWEST POSITION. CALL LIGHT WITHIN REACH. WILL CONTINUE TO MONITOR.
[2017-12-11 08:00] VITALS: BP 129/56
[2017-12-11] MEDS: LEVETIRACETAM (500MG) 1,000 MG in IV NS 0.9% 100 ML IV SCH (08:21)
[2017-12-11] MEDS: VALPROIC ACID 250 MG/5 ML UDC PO SCH ×3 (08:22→16:25)
[2017-12-11] MEDS: CARVEDILOL 12.5 MG TABLET PO SCH ×2 (08:22→16:25)
[2017-12-11] MEDS: AMLODIPINE BESYLATE 5 MG TABLET PO SCH (08:22)
[2017-12-11] MEDS: POTASSIUM CHLORIDE 10 MEQ TABLET.SA PO SCH (08:22)
[2017-12-11] MEDS: ASPIRIN 81 MG TAB.CHEW PO SCH (08:23)
[2017-12-11] MEDS: LEVOTHYROXINE SODIUM 25 MCG TABLET PO SCH (08:23)
[2017-12-11] MEDS: PANTOPRAZOLE 40 MG VIAL IV SCH (08:23)
[2017-12-11 12:00] VITALS: BP 109/78
[2017-12-11] MEDS: DIGOXIN 0.125 MG TABLET PO SCH (13:11)
[2017-12-11 16:00] VITALS: BP 127/69
[2017-12-11] MEDS: RIVAROXABAN 10 MG TABLET PO SCH (16:24)
[2017-12-11] MEDS: OLANZAPINE 5 MG TABLET PO SCH (17:12)
--- NOTE | 2017-12-11 19:10 | NUR ---
MS RN NOTES: PT ALERT AND AWAKE. NO APPARENT DISTRESS NOTED. NO COMPLAINTS OF PAIN OR DISCOMFORT AT THIS TIME. BREATHING EVEN AND UNLABORED WITH NORMAL RESPIRATIONS. IV ON LEFT HAND INTACT AND PATENT. KEPT CLEAN, DRY AND COMFORTABLE. TURNED AND REPOSITIONED Q2HRS. SAFETY AND FALL PRECAUTIONS OBSERVED AND MAINTAINED. WILL ENDORSE TO BARBERING TEACHER FOR CONTINUITY OF CARE.
[2017-12-11] MEDS: IV NS 0.9% 1,000 ML IV PRN (19:36)
[2017-12-11 20:00] VITALS: BP 109/69
--- NOTE | 2017-12-11 20:10 | NUR ---
RN NOTES RECEIVED PATIENT AWAKE IN BED EATING DINNER WITH NO DISTRESS NOTED. BREATHING EVEN AND UNLABORED ON ROOM AIR. ALERT AND RESPONSIVE WITH CONFUSION AND APHASIA. NO COMPLAINT OF PAIN OR DISCOMFORT OF THIS TIME. KEPT CLEAN AND DRY. WILL CONTINUE TO MONITOR.
[2017-12-11] MEDS: LEVETIRACETAM (250 MG) 250 MG TABLET PO SCH (21:24)
[2017-12-11] MEDS: ATORVASTATIN 10 MG TABLET PO SCH (21:25)
[2017-12-11] MEDS: VALACYCLOVIR HCL 500 MG TABLET PO SCH (21:26)
[2017-12-12 04:00] VITALS: BP 106/52
--- NOTE | 2017-12-12 06:35 | NUR ---
RN NOTES NO SIGNIFICANT CHANGE OF CONDITION. IN BED SLEEPING COMFORTABLY. NO DISTRESS OR SHORTNESS OF BREATH. BREATHING EVEN AND UNLABORED. WILL ENDORSE TO AM SHIFT FOR CONTINUITY OF CARE
[2017-12-12 06:46] LABS: BASOPHILS # (AUTO) 0.1 /CMM (0.0-0.2); BASOPHILS % (AUTO) 0.7 % (0.0-2.0); EOSINOPHILS % (AUTO) 2.5 % (0.0-6.0); HEMATOCRIT 38 % (33-45); HEMOGLOBIN 12.6 g/dL (11.5-14.8); LYMPHOCYTES # (AUTO) 2.8 /CMM (0.8-4.8); MEAN CORPUSCULAR HEMOGLOBIN 32 PG (26.0-33.0); MEAN CORPUSCULAR HGB CONC 34 g/dl (31.0-36.0); MEAN CORPUSCULAR VOLUME 95 fL (82-100); MONOCYTES # (AUTO) 0.5 /CMM (0.1-1.30); MONOCYTES % (AUTO) 7.3 % (2.0-12.0); NEUTROPHILS # (AUTO) 3.3 /CMM (1.8-8.9); NEUTROPHILS % (AUTO) 48.5 % (43.0-81.0); PLATELET COUNT (AUTO) 182 /CMM (150-450); RDW COEFFICIENT OF VARIATION 13.2 (11.5-15.0); RED BLOOD CELL COUNT(AUTO) 3.98 MIL/uL (4.0-5.2); WHITE BLOOD COUNT (AUTO) 6.9 K/uL (4.3-11.0)
[2017-12-12 06:55] LABS: CALCIUM, SERUM 8.7 mg/dL (8.5-10.1); CARBON DIOXIDE 25 mmol/L (21-32); CHLORIDE 112 mmol/L (98-107); CREATININE 0.9 mg/dL (0.6-1.3); GLUCOSE 98 mg/dL (74-106); POTASSIUM 3.7 mmol/L (3.5-5.1); SODIUM SERUM 146 mmol/L (136-145); UREA NITROGEN, BLOOD 10 mg/dL (7-18)
[2017-12-12] MEDS: IV NS 0.9% 1,000 ML IV PRN (07:05)
--- NOTE | 2017-12-12 07:28 | NUR ---
MS RN NOTES: RECEIVED PT ON BED ASLEEP, NO ACUTE DISTRESS NOTED. BREATHING EVEN AND UNLABORED WITH NORMAL RESPIRATIONS. IV ON LEFT AC INTACT AND PATENT, ON IV NS RUNNING AT 80ML/HR. CONTACT PRECAUTIONS MAINTAINED. SIDE RAILS UP X2. BED ALARM ON. BED LOCKED AND IN LOWEST POSITION. WILL CONTINUE TO MONITOR PT.
[2017-12-12 08:00] VITALS: BP_SYST 135; BP_SYST 141; BP_DIAS 84; BP_DIAS 87
[2017-12-12] MEDS: PANTOPRAZOLE 40 MG VIAL IV SCH (08:42)
[2017-12-12] MEDS: POTASSIUM CHLORIDE 10 MEQ TABLET.SA PO SCH (08:43)
[2017-12-12] MEDS: AMLODIPINE BESYLATE 5 MG TABLET PO SCH (08:43)
[2017-12-12] MEDS: VALPROIC ACID 250 MG/5 ML UDC PO SCH ×3 (08:43→17:18)
[2017-12-12] MEDS: LEVETIRACETAM (250 MG) 250 MG TABLET PO SCH ×2 (08:44→20:27)
[2017-12-12] MEDS: CARVEDILOL 12.5 MG TABLET PO SCH ×2 (08:44→17:18)
[2017-12-12] MEDS: LEVOTHYROXINE SODIUM 25 MCG TABLET PO SCH (08:44)
[2017-12-12] MEDS: VALACYCLOVIR HCL 500 MG TABLET PO SCH ×2 (08:45→20:27)
[2017-12-12] MEDS: ASPIRIN 81 MG TAB.CHEW PO SCH (08:55)
--- NOTE | 2017-12-12 10:50 | NUR ---
MESSAGE LEFT TO DR. GARCIA OFFICE YESTERDAY AND ALSO REMINDED NURSING SUP THAT HE DID NOT RETURN CALL,PER NURSING SUP ALSO LEFT MESSAGE.PAMELLA MORENO AWARE ,
--- NOTE | 2017-12-12 11:05 | NUR ---
NEO CORDERO CALLED AND SPOKE W/ DR. GARCIA AND GAVE HIS CELL NUMBER .PAMELLA MORENO MADE AWARE AND GAVE HIM CELL PHONE NUMBER OF DR. GARCIA SO HE CAN CALL HIM PERSONALLY.WILL CONTINUE TO FF. UP.
--- NOTE | 2017-12-12 11:37 | NUR ---
MS RN NOTES: RECEIVED A CALL FROM DR. MACIEL SCHMITT STATING THAT HE WILL FOLLOW UP WITH THE PT ON WEDNESDAY AT HIS CLINIC AROUND 12NN, AND HE ALSO ORDERED FOR EEG AND DEPAKENE 250MG TID. Addendum: 12/12/17 at 1146 by SAUL WOODS RN RECEIVED A CALL FROM DR. MACIEL SCHMITT STATING THAT HE WILL FOLLOW UP WITH THE PT ON WEDNESDAY AT HIS CLINIC AROUND 12NN, AND HE ALSO ORDERED FOR EEG AND DEPAKOTE 250MG TID.
--- NOTE | 2017-12-12 12:30 | NUR ---
MS RN NOTES: NOTIFIED DAUGHTER REGARDING NEW ORDERS FROM DR. SCHMITT. DAUGHTER VERBALIZE UNDERSTANDING. DENIES PAIN AT THIS TIME. NO EPISODE OF SEIZURE NOTED.
[2017-12-12] MEDS: DIGOXIN 0.125 MG TABLET PO SCH (12:49)
[2017-12-12] MEDS ORDERED: DIVALPROEX SODIUM 250 MG TABLET.DR PO SCH (13:00)
[2017-12-12] MEDS ORDERED: VALPROIC ACID 250 MG/5 ML UDC PO SCH (13:00)
[2017-12-12 16:00] VITALS: BP 136/84
[2017-12-12] MEDS: OLANZAPINE 5 MG TABLET PO SCH (17:18)
[2017-12-12] MEDS: RIVAROXABAN 10 MG TABLET PO SCH (17:19)
[2017-12-12] MEDS: ACYCLOVIR 5% CREAM 5 GM TUBE TP SCH ×2 (18:36→21:31)
--- NOTE | 2017-12-12 18:42 | NUR ---
MS RN NOTES: NO APPARENT DISTRESS NOTED THROUGHOUT THE SHIFT. DENIES PAIN AT THIS TIME. BREATHING EVEN AND UNLABORED WITH NORMAL RESPIRATIONS. ALL DUE MEDS GIVEN ORDERED AND WELL TOLERATED, NO ASPIRATIONS NOTED. IV ON LEFT AC G20 INTACT AND PATENT. KEPT CLEAN, DRY AND COMFORTABLE. SIDE RAILS UP. BED ALARM ON. BED LOCKED AND IN LOWEST POSITION. CALL LIGHT WITHIN REACH. WILL ENDORSE TO BUSINESS DEVELOPMENT EXECUTIVE FOR EDWINA.
--- NOTE | 2017-12-12 19:20 | NUR ---
MS/RN NOTES RECEIVED PT. LYING IN BED. PT. IS AWAKE, ALERT AND ORIENTED TO SELF. BREATHING EVEN AND UNLABORED ON ROOM AIR. NO SOB, RESPIRATORY DISTRESS OR S/S OF PAIN NOTED AT THIS TIME. PT. WITH LEFT AC PERIPHERAL IV PRESENT, PATENT AND INTACT ADMINISTERING TO PT. NS @ 80 ML/HR. ISOLATION PRECAUTIONS IMPLEMENTED AND IN PLACE. BED LOCKED AND IN LOWEST POSITION, SIDE RAILS UP X3, BED ALARM ON, WILL CONTINUE TO MONITOR.
[2017-12-12] MEDS: ATORVASTATIN 10 MG TABLET PO SCH (21:31)
[2017-12-13 04:00] VITALS: BP 145/79
[2017-12-13] MEDS: ACYCLOVIR 5% CREAM 5 GM TUBE TP SCH ×5 (06:33→20:19)
--- NOTE | 2017-12-13 06:40 | NUR ---
MS/RN NOTES PT. IS LYING IN BED RESTING. BREATHING EVEN AND UNLABORED ON ROOM AIR. NO SOB, RESPIRATORY DISTRESS OR S/S OF PAIN NOTED AT THIS TIME. PT. WITH LEFT AC PERIPHERAL IV PRESENT, PATENT AND INTACT ADMINISTERING TO PT. NS @ 80 ML/HR. ALL PT. NEEDS MET. PT. OFFLOADED, TURNED AND REPOSITIONED Q2H AND NEEDED. ISOLATION PRECAUTIONS IMPLEMENTED AND IN PLACE. BED LOCKED AND IN LOWEST POSITION, SIDE RAILS UP X3, BED ALARM ON, WILL ENDORSE TO DAYSHIFT NURSE FOR CONTINUITY OF CARE.
--- NOTE | 2017-12-13 07:43 | NUR ---
MS RN NOTES: RECEIVED PT ON BED ASLEEP. IN NO APPARENT DISTRESS. BREATHING EVEN AND UNLABORED WITH NORMAL RESPIRATIONS. NO SIGNS/SYMPTOMS OF PAIN NOTED. IV ON LEFT AC INTACT AND PATENT, ON IV NS RUNNING AT 80ML/HR. CONTACT PRECAUTIONS MAINTAINED. SIDE RAILS UP X2. BED ALARM ON. BED LOCKED AND IN LOWEST POSITION. WILL CONTINUE TO MONITOR PT.
[2017-12-13 08:00] VITALS: BP 113/76
[2017-12-13] MEDS: ASPIRIN 81 MG TAB.CHEW PO SCH (08:52)
[2017-12-13] MEDS: AMLODIPINE BESYLATE 5 MG TABLET PO SCH (08:52)
[2017-12-13] MEDS: LEVOTHYROXINE SODIUM 25 MCG TABLET PO SCH (08:52)
[2017-12-13] MEDS: CARVEDILOL 12.5 MG TABLET PO SCH ×2 (08:52→16:51)
[2017-12-13] MEDS: PANTOPRAZOLE 40 MG VIAL IV SCH (08:52)
[2017-12-13] MEDS: LEVETIRACETAM (250 MG) 250 MG TABLET PO SCH ×2 (08:52→20:52)
[2017-12-13] MEDS: VALACYCLOVIR HCL 500 MG TABLET PO SCH ×2 (08:52→20:53)
[2017-12-13] MEDS: VALPROIC ACID 250 MG/5 ML UDC PO SCH ×3 (08:52→16:52)
[2017-12-13] MEDS: POTASSIUM CHLORIDE 20 MEQ POWDER PACKET PO SCH (08:54)
[2017-12-13] MEDS: IV NS 0.9% 1,000 ML IV PRN (09:55)
[2017-12-13] MEDS ORDERED: VALPROATE 500 MG in IV NS 0.9% 100 ML IV STA (10:40)
[2017-12-13] MEDS: DIGOXIN 0.125 MG TABLET PO SCH (13:43)
--- NOTE | 2017-12-13 14:00 | NUR ---
MS RN NOTES: PT HAD AN EPISODE OF VOMITING X1. HEAD OF BED ELEVATED. NO SIGNS/SYMPTOMS OF SOB NOTED. VITAL SIGNS TAKEN. PAMELLA MORENO NP NOTIFIED AND ORDERED CHEST XRAY.
[2017-12-13 16:00] VITALS: BP_SYST 104; BP_SYST 105; BP_DIAS 49; BP_DIAS 56
[2017-12-13] MEDS: RIVAROXABAN 10 MG TABLET PO SCH (16:56)
[2017-12-13] MEDS: OLANZAPINE 5 MG TABLET PO SCH (17:04)
--- NOTE | 2017-12-13 18:43 | NUR ---
MS RN NOTES: PT IN BED, AWAKE. NO ACUTE DISTRESS NOTED. NO COMPLAINTS OF PAIN OR DISCOMFORT AT THIS TIME. BREATHING EVEN AND UNLABORED WITH NORMAL RESPIRATIONS. CHEST XRAY WAS DONE. DUE MEDS GIVEN ORDERED, ABLE TO TOLERATE WELL. HOB ELEVATED. IN ON LEFT AC INTACT AND PATENT. WOUND TREATMENT ON LEFT BUTTOCK DONE ORDERED. TURNED AND REPOSITIONED Q2HRS. KEPT CLEAN, DRY AND COMFORTABLE. SIDE RAILS UP. BED ALARM ON. BED LOCKED AND IN LOWEST POSITION. CALL LIGHT WITHIN REACH. WILL ENDORSE TO ASSESSMENT COORDINATOR FOR EDWINA.
[2017-12-13 20:00] VITALS: BP 91/52
--- NOTE | 2017-12-13 20:00 | NUR ---
FADY RN NOTES RECEIVED BEDSIDE REPORT FROM AM NURSE.PATIENT IN BED, ALERT, CONFUSED, ON RA WITH SPO2 96%, SATURATING WELL, HR 80'S, L AC 20 G @ NS 0.9% @80ML/HR, CLEAN AND PATENT. BED IN LOW AND LOCKED POSITION, CALL LIGHT WITHIN REACH.RU BUTTOCK LESION NOTED, WOUND CARE WILL BE DONE BY MD ORDER. WILL CONTINUE TO MONITOR, OBSERVING SEIZURE AND ASPIRATION PRECAUTIONS PER PROTOCOL.
[2017-12-13] MEDS: ATORVASTATIN 10 MG TABLET PO SCH (22:51)
[2017-12-14] MEDS: IV NS 0.9% 1,000 ML IV PRN (00:49)
[2017-12-14 04:00] VITALS: BP 102/54
[2017-12-14] MEDS: ACYCLOVIR 5% CREAM 5 GM TUBE TP SCH ×3 (07:55→15:18)
[2017-12-14 08:00] VITALS: BP 100/64
--- NOTE | 2017-12-14 08:00 | NUR ---
MS RN NOTE PATIENT IN BED ,RESTING COMFORTABLY, SLEEPING BUT AWAKE BY CALLING HER NAME ANS BY RESPONSE BY TACITLY STIMULI , ON 2L NC, NO SOB NOTED , BED IN LOWEST AND LOCKED POSITION , CALL LIGHT WITHIN REACH .FED BY POT ANNEALER ATE 25% OF FOOD , ON 2L NC, NO SOB NOTED , LT AC HL INTACT ON IVF ORDERED , WILL CONT TO MONITOR CLOSELY, CALL LIGHT WITHIN REACH
[2017-12-14] MEDS: PANTOPRAZOLE 40 MG VIAL IV SCH (08:58)
[2017-12-14] MEDS: VALPROIC ACID 250 MG/5 ML UDC PO SCH ×3 (08:58→16:46)
[2017-12-14] MEDS: LEVETIRACETAM (250 MG) 250 MG TABLET PO SCH (08:58)
[2017-12-14] MEDS: VALACYCLOVIR HCL 500 MG TABLET PO SCH (08:58)
[2017-12-14] MEDS: LEVOTHYROXINE SODIUM 25 MCG TABLET PO SCH (08:59)
[2017-12-14] MEDS: ASPIRIN 81 MG TAB.CHEW PO SCH (08:59)
[2017-12-14] MEDS: CARVEDILOL 12.5 MG TABLET PO SCH ×2 (09:00→16:50)
[2017-12-14] MEDS: AMLODIPINE BESYLATE 5 MG TABLET PO SCH (09:00)
[2017-12-14] MEDS: POTASSIUM CHLORIDE 20 MEQ POWDER PACKET PO SCH (09:00)
--- NOTE | 2017-12-14 10:00 | NUR ---
MS RN NOTE ALL NEEDS ATTENDED ,KEEP CLEAN DRY , NOT IN ACUTE DISTRESS
--- NOTE | 2017-12-14 11:46 | NUR ---
MS RN NOTE SEEN BY PT, WILL F\U
[2017-12-14] MEDS: DIGOXIN 0.125 MG TABLET PO SCH (12:21)
[2017-12-14 12:24] VITALS: BP 95/62
--- NOTE | 2017-12-14 13:34 | NUR ---
MS RN NOTE PER ABDIEL HOWELL OK TO D\C HOME NOTIFY THAT LATEST BP 95/62 ,STILL OK TO DISCHARGE ALSO AWARE ON RA SAT 92% ,NO SOB NOTED Addendum: 12/14/17 at 1450 by LISA BAUTISTA RN DAUGHTER WILL CAME TO FINISHING OPERATOR AT [address] WILL F\U
[2017-12-14] MEDS ORDERED: LEVE250T2 PO (13:37)
[2017-12-14] MEDS ORDERED: ASPI-1169 PO (13:37)
[2017-12-14] MEDS ORDERED: ACYC5CRE2 TP (13:37)
[2017-12-14] MEDS ORDERED: VALP250S22 PO (13:37)
[2017-12-14] MEDS ORDERED: VALA500T PO (13:37)
--- NOTE | 2017-12-14 15:00 | NUR ---
MS RN NOTE KEEP CLEAN DRY , ALL NEEDS ATTENDED
[2017-12-14 16:00] VITALS: BP 118/75
[2017-12-14] MEDS: RIVAROXABAN 10 MG TABLET PO SCH (16:48)
--- NOTE | 2017-12-14 17:08 | NUR ---
MS RN NOTE D\C INSTRUCTION GIVEN HL REMOVED, DAUGHTER UNDERSTOOD, NO S\S INFECTION OR BLEEDING NOTED FROM HL . PX GIVEN TO DAUGHTER , , INSTRUCTED TO FOLLOW UP WITH PRIMARY CARE DOCTOR AND HOW TO TAKE NEW AND HOME MEDICATION AND POSSIBLE SIDE EFFECTS TAKN TO LOBBY ON W\C WITH STABLE CONDITION, TAKEN TO LOBBY WITH STUFF RN
== END 2017-12-14 17:04 | disposition home health service (06) | DRG 100 ==
LOC: ER 15:17 → TELE 16:42 → TELE-TD 22:50 → MEDSG1 12-10 08:44
PROVIDERS: ADMIT Hospitalist; ATTEND Hospitalist
DX: G40.909 Epilepsy, unspecified, not intractable, without status epilepticus (principal); I21.A1 Myocardial infarction type 2; F03.90 Unspecified dementia, unspecified severity, without behavioral disturbance, psychotic disturbance, mood disturbance, and anxiety; E03.9 Hypothyroidism, unspecified; E78.5 Hyperlipidemia, unspecified; I69.320 Aphasia following cerebral infarction; I48.91 Unspecified atrial fibrillation; I10 Essential (primary) hypertension; I67.2 Cerebral atherosclerosis; Z79.01 Long term (current) use of anticoagulants; B02.9 Zoster without complications
CPT/HCPCS: 36415; 70450-TC; 71045-TC; 80048-TC; 80061-TC; 80076-TC; 80162-TC; 80164-TC; 83735-TC; 84100-TC; 84484-TC; 85025-TC; 85730-TC; 87081-TC; 92526; 92611-TC; 95819-TC; 97110-TC; 97116-TC; 97530-TC; A4606; C9113; G0480; J1650; J1953; J3490; J7030; J7042; J7050; J7070; Z7610